=== PATIENT | female | born 1955 | race Caucasian/White ===

== ENCOUNTER 2018-04-07 05:19 | Inpatient (IN) | payer MEDICARE ==
[2018-04-07] VITALS (11 sets, daily range): BP systolic 115–148; BP diastolic 60–91; PULSE 63–84; TEMP 97.7–99
[~2018-04-07] VITALS: Ht 165.1 cm; Wt 85.0 kg
[~2018-04-07 05:19] MED LIST: APRESOLINE 25MG25 MG PO; ASPIRIN E.C. 8181 MG PO; COREG 25MG25 MG/TAB PO; COREG 3.123.125 MG/T; CYMBALTA 30MG30 MG PO; CYMBALTA 60MG60 MG PO; GLUCOPHAGE1000 MG PO; ISORDIL 10MG10 MG PO; LASIX 20MG TABL20 MG PO; LEVEMIR FLEX100 U/ML SQ; LEVOXYL0.137 MG PO; LIPITOR20 MG PO; VASOTEC 5MG5 MG/TAB PO
[2018-04-07 07:44] LABS: BASO # 0.1 (0.0-0.2); BASO % 0.6 % (0.0-2.0); EOS # 0.5 (0.0-0.7); EOS % 4.5 % (0-4.0); GRAN # 6.5 (1.4-6.5); GRAN % 63.8 % (42.2-75.2); LYMPH # 2.6 (1.2-3.4); LYMPH % 25.3 % (20.0-51.0); MEAN CELL VOLUME 88 fl (80.0-100.0); MEAN CORPUSCULAR HGB CONC 31 g/dl (33.0-37.0); MEAN PLATELET VOLUME 11.1 fl (7.4-10.4); MONO # 0.6 (0.1-0.6); MONO % 5.5 % (1.7-9.3); PLATELET COUNT 244 K/mm3 (130-400); RED BLOOD COUNT 3.52 M/mm3 (4.10-5.30); REDCELL DISTRIBUTION WIDTH-CV 12.8 % (11.5-14.5)
[2018-04-07 07:45] LABS: PROTHROMBIN TIME 11.9 SECONDS (9.7-12.8)
[2018-04-07 07:48] LABS: PARTIAL THROMBOPLASTIN TIME 33.7 SECONDS (26.0-37.0)
[2018-04-07 07:49] LABS: ALBUMIN 3.8 gm/dL (3.5-5.0); BILIRUBIN,TOTAL 0.3 mg/dL (0.0-1.0); CALCIUM 8.8 mg/dL (8.4-10.2); POTASSIUM 4.6 mmol/L (3.4-5.0); TOTAL PROTEIN 7.1 gm/dL (6.4-8.2)
[2018-04-07 07:50] LABS: HEMATOCRIT 30.8 % (37.0-47.0); HEMOGLOBIN 9.6 g/dl (12.5-16.0); MEAN CORPUSCULAR HEMOGLOBIN 27 pg (27.0-31.0)
[2018-04-07 07:51] LABS: CREATININE, serum 4.16 mg/dL (0.52-1.25)
--- NOTE | 2018-04-07 08:50 | NUR ---
Pt down to microbiology lab technician for dialysis cath.
--- NOTE | 2018-04-07 09:16 | NUR ---
ALL MEDS GIVEN VIA VERBAL WITH READBACK. SEE MERGE FOR ADMIN TIMES.
--- NOTE | 2018-04-07 10:25 | NUR ---
Pt returned from dialysis catheter placement in labor utilization superintendent. Pt dialysis cath drsg CDI. Pt alert and oriented but very drowsy. Pt has family at bedside. Will update Dr. Sparks pt back from labor utilization superintendent. Pt has post op vitals in place and call light in reach.
[2018-04-07] MEDS ORDERED: PHOSLO667 MG PO (10:53)
[2018-04-07] MEDS ORDERED: CALCITRIOL PO (11:01)
[2018-04-07] MEDS ORDERED: LEVEMIR FLEX100 U/ML SQ (11:06)
[2018-04-07] MEDS ORDERED: IRON TABLETS325 MG PO (11:07)
--- NOTE | 2018-04-07 12:28 | NUR ---
First visit from the title i teacher. No needs right now.
--- NOTE | 2018-04-07 13:58 | NUR ---
SW attempted to meet with patient but patient was not in her room.
--- NOTE | 2018-04-07 18:39 | NUR ---
Pt stable this shift. Pt Right IJ dialysis catheter placed this am and dressing CDI. Pt rates pain 2/10 d/t headache. Pt given snack per request and BS 288. Dr. Sparks updated on BS and wants to monitor and change orders in AM if needed. Pt has call light in reach and brought in her own CPAP to use tonight. Pt denies needs at this time.
--- NOTE | 2018-04-07 19:37 | NUR ---
CALLED DR. TALAMANTES AND RECEIVED ORDERS FOR CPAP FOR SLEEP.
--- NOTE | 2018-04-07 21:24 | NUR ---
PT IN BED WITH HOB ELEVATED TO 45 DEGREE ANGLE, WAS ASLEEP AND SNORING. AWAKENED VERY EASILY. PT HAS SLIGHT PAIN IN RIGHT UPPER CHEST AREA RATED AT A 2/10 THAT IS SHARP AND CONSTANT. PT AMBULATED X1 ASSIST TO BATHROOM AND THEN BACK TO BED. PT HAS NO FURTHER NEEDS AND CALL LIGHT WITHIN REACH.
[2018-04-08 02:25] LABS: HEPATITIS B CORE AB,TOTAL Negative (()); HEPATITIS B SURFACE ANTIGEN Negative (Negative); HEPATITIS C VIRUS ANTIBODY Negative (Negative)
--- NOTE | 2018-04-08 02:25 | NUR ---
PT IN BED WITH HOB ELEVATED TO 30 DEGREE ANGLE, CPAP ON, RESP EVEN AND UNLABORED, WITH NO S/S OF PAIN OR DISCOMFORT NOTED.
[2018-04-08 03:26] LABS: HEPATITIS B SURFACE ANTIBODY <2.0 (())
[2018-04-08 04:16] VITALS: BP 146/59; PULSE 73; TEMP 98.1
--- NOTE | 2018-04-08 07:12 | NUR ---
UNEVENTFUL NIGHT FOR PT. PT SLEPT WITH CPAP ON DURING THE NIGHT AND SLEPT WELL. PT IS AWARE THAT SHE IS GOING TO DIALYSIS THIS AM. PT HAS IN ROOM WITH HER. NO C/O PAIN OR DISCOMFORT, NO NEEDS AND CALL LIGHT WITHIN REACH.
[2018-04-08 07:57] VITALS: BP 139/69; PULSE 69; TEMP 98.2
--- NOTE | 2018-04-08 08:09 | NUR ---
Pt stable and alert and oriented. Pt has spouse at bedside. Pt VS WNL. Pt am assessment completed. Pt taken down for dialysis this am. Pt denies needs at this time. Pt will eat in dialysis.
[2018-04-08 08:32] LABS: BASO % 0.5 % (0.0-2.0); EOS # 0.4 (0.0-0.7); EOS % 4.9 % (0-4.0); GRAN # 5.4 (1.4-6.5); GRAN % 61.6 % (42.2-75.2); LYMPH # 2.3 (1.2-3.4); LYMPH % 25.8 % (20.0-51.0); MEAN CELL VOLUME 88 fl (80.0-100.0); MEAN CORPUSCULAR HGB CONC 31 g/dl (33.0-37.0); MEAN PLATELET VOLUME 10.5 fl (7.4-10.4); MONO # 0.6 (0.1-0.6); MONO % 6.9 % (1.7-9.3); PLATELET COUNT 209 K/mm3 (130-400); RED BLOOD COUNT 3.37 M/mm3 (4.10-5.30); REDCELL DISTRIBUTION WIDTH-CV 12.9 % (11.5-14.5)
[2018-04-08 08:45] LABS: ALBUMIN 3.4 gm/dL (3.5-5.0); CALCIUM 8.6 mg/dL (8.4-10.2); CREATININE, serum 3.23 mg/dL (0.52-1.25); PHOSPHOROUS 5.3 mg/dL (2.5-4.5); POTASSIUM 4.5 mmol/L (3.4-5.0)
[2018-04-08 08:52] LABS: HEMATOCRIT 29.7 % (37.0-47.0); HEMOGLOBIN 9.2 g/dl (12.5-16.0); MEAN CORPUSCULAR HEMOGLOBIN 27 pg (27.0-31.0)
[2018-04-08 11:41] VITALS: BP 137/56; PULSE 76; TEMP 97.7
--- NOTE | 2018-04-08 12:53 | NUR ---
Plan to return home with mother Eric Davey . Patient reports that she will stay with her mother a few days until she can return home. Patient is interested in Home health care and has used [facility] in the past. Patient reports that she resides in [place] alone but her mother is a few houses down. Patient repoerts that she is using a CPAP machince nightly and a shower chair and extending head. Patient repeorts that she would like to Yonatan Thao , ex-BF to be on the emergency contact for her. Patient has DPOA ppw and SW made a copy and placed copy in chart. Patient reports the needs to have Transportation setup for [place] 3x a week and must sees her PCP every four weeks and Dr. Partida or Elizabeth Every week. PCP reported as Dr. Eduin Bishop, Dr. Chambers, and Dr. Partida. Action: Gave family resources, faxed home health care [facility] form for intake. Patient educated on resources and transportation services through insurance. Please fax script to insurance and to home health care for coverage of transportation. Called and confirmed medical neccassity for transportation.
--- NOTE | 2018-04-08 14:29 | NUR ---
Pt stable and alert. Pt has family in and out at bedside all of today. Pt wants to sponge bathe this evening. Pt given education on bathing with dialysis catheter and importance of not getting the catheter wet. Pt also edu on bathing during dialysis per pt. Pt has nutrition info from small business banking officer. Pt has PT and OT ordered. Pt denies needs at this time.
[2018-04-08 16:30] VITALS: BP 138/74; PULSE 81; TEMP 98
[2018-04-08 19:29] VITALS: BP 117/55; PULSE 80; TEMP 97.9
--- NOTE | 2018-04-08 20:00 | NUR ---
PT IN BED WITH HOB AT 30 DEGREE ANGLE. HAS BEEN ASSISTING HER TO THE BATHROOM AND ADVISES THAT PT HAS BEEN AMBULATING IN ROOM INDEPENDENTLY AND GAIT STEADY. PT IS A LITTLE WEAK, BUT SHE ADVISES THAT SHE FEELS FINE. PT HAS CPAP THAT SHE SLEEPS WITH AT NIGHT AND PUTS IT ON BY HERSELF. PT RESTING IN BED WITH AT SIDE. DENIES PAIN OR DISCOMFORT AT THIS TIME. CALL LIGHT WITHIN REACH.
[2018-04-09 02:37] VITALS: BP 148/59; PULSE 71; TEMP 98.3
--- NOTE | 2018-04-09 05:49 | NUR ---
UNEVENTFUL NIGHT, PT HAS BEEN SLEEPING/RESTING WITH CPAP ON. NO S/S OF PAIN OR DISCOMFORT NOTED, AT BEDSIDE AND CALL LIGHT WITHIN REACH.
--- NOTE | 2018-04-09 06:03 | NUR ---
PT'S BS WAS 92 AND PT WAS WORRIED BECAUSE HER BS HAS NEVER BEEN THAT LOW. FOOD TAKEN INTO PT'S ROOM.
[2018-04-09 07:37] VITALS: BP 137/57; PULSE 70; TEMP 98.6
[2018-04-09 11:44] VITALS: BP 143/58; PULSE 80; TEMP 98
[2018-04-09 14:37] LABS: BASO # 0.1 (0.0-0.2); BASO % 0.5 % (0.0-2.0); EOS # 0.4 (0.0-0.7); EOS % 4.3 % (0-4.0); GRAN # 6.4 (1.4-6.5); GRAN % 64.4 % (42.2-75.2); HEMATOCRIT 29.9 % (37.0-47.0); HEMOGLOBIN 9.4 g/dl (12.5-16.0); LYMPH # 2.4 (1.2-3.4); LYMPH % 24.1 % (20.0-51.0); MEAN CELL VOLUME 89 fl (80.0-100.0); MEAN CORPUSCULAR HEMOGLOBIN 28 pg (27.0-31.0); MEAN CORPUSCULAR HGB CONC 31 g/dl (33.0-37.0); MEAN PLATELET VOLUME 11.2 fl (7.4-10.4); MONO # 0.6 (0.1-0.6); MONO % 5.9 % (1.7-9.3); PLATELET COUNT 201 K/mm3 (130-400); RED BLOOD COUNT 3.38 M/mm3 (4.10-5.30)
[2018-04-09 14:44] LABS: ALBUMIN 3.5 gm/dL (3.5-5.0); CALCIUM 9.1 mg/dL (8.4-10.2); CREATININE, serum 3.12 mg/dL (0.52-1.25); PHOSPHOROUS 3.7 mg/dL (2.5-4.5); POTASSIUM 4.5 mmol/L (3.4-5.0)
[2018-04-09 17:10] VITALS: BP 154/67; PULSE 84; TEMP 99.1
--- NOTE | 2018-04-09 18:18 | NUR ---
Pt stable this shift. Pt alert and oriented and family at bedside. Pt denies pain at this time. Pt dialysis cath CDI. Reviewed bathing instructions with pt regarding dialysis cath and under no circumstances can the cath get wet so sponge bathing is best. Pt also edu on vein mapping CD that will be given to her and importance to keep because she will need it for follow up appt. Pt understands. Pt has family at bedside and denies needs at this time.
[2018-04-09 19:12] VITALS: BP 94/53; PULSE 78; TEMP 98.6
--- NOTE | 2018-04-09 20:15 | NUR ---
Pt resting in bed watching TV, shift assessments complete, left Pt call light in reach, bed in lowest position.
[2018-04-09 23:29] VITALS: BP 126/46; PULSE 78; TEMP 97.9
[2018-04-10 04:09] VITALS: BP 137/55; PULSE 75; TEMP 98.2
--- NOTE | 2018-04-10 05:13 | NUR ---
Pt slept well during the night, no C/O pain, VS have remained stable.
[2018-04-10 07:44] VITALS: BP 143/68; PULSE 73; TEMP 98.4
--- NOTE | 2018-04-10 08:00 | NUR ---
Pt AAOx4 with mother at bedside, pt wishing to shower - educated on infection risk of TDC with exposure to water, pt agrees. 0840 Pt off unit to dialysis
[2018-04-10 09:29] LABS: BASO % 0.4 % (0.0-2.0); EOS # 0.5 (0.0-0.7); EOS % 4.7 % (0-4.0); GRAN # 7.1 (1.4-6.5); GRAN % 68.8 % (42.2-75.2); LYMPH % 19.7 % (20.0-51.0); MEAN CELL VOLUME 89 fl (80.0-100.0); MEAN CORPUSCULAR HGB CONC 31 g/dl (33.0-37.0); MEAN PLATELET VOLUME 10.9 fl (7.4-10.4); MONO # 0.6 (0.1-0.6); MONO % 5.9 % (1.7-9.3); PLATELET COUNT 187 K/mm3 (130-400); REDCELL DISTRIBUTION WIDTH-CV 12.9 % (11.5-14.5)
[2018-04-10 09:30] LABS: HEMATOCRIT 29.3 % (37.0-47.0); HEMOGLOBIN 9.1 g/dl (12.5-16.0); MEAN CORPUSCULAR HEMOGLOBIN 28 pg (27.0-31.0)
[2018-04-10 09:43] LABS: ALBUMIN 3.3 gm/dL (3.5-5.0); CALCIUM 8.8 mg/dL (8.4-10.2); CREATININE, serum 3.34 mg/dL (0.52-1.25); PHOSPHOROUS 3.9 mg/dL (2.5-4.5); POTASSIUM 4.5 mmol/L (3.4-5.0)
--- NOTE | 2018-04-10 14:20 | NUR ---
JAMIN met with patient and mother about discharge plans. Patient reported to weekend SW that she was interested in [facility] when she is discharged. Patient also reported Dr should have written an RX for transportation to dialysis three times a week. JAMIN will fax that prescription to [facility] and patient's insurance.
--- NOTE | 2018-04-10 15:39 | NUR ---
JAMIN spoke with Pedro from [facility] about referral that was faxed this weekend. Pedro reports they did not recieve a referral on patient. JAMIN faxed referral.
[2018-04-10 16:12] VITALS: BP 149/65; PULSE 92; TEMP 99
[2018-04-10 19:55] VITALS: BP 130/50; PULSE 81; TEMP 98.5
--- NOTE | 2018-04-10 21:03 | NUR ---
Pt resting in bed sleeping, no C/O pain, shift assessments complete, left Pt call light in reach, bed in lowest position.
[2018-04-11 00:24] VITALS: BP 134/71; PULSE 78; TEMP 98
[2018-04-11 03:17] VITALS: BP 141/62; PULSE 81; TEMP 98.1
--- NOTE | 2018-04-11 04:54 | NUR ---
Pt slept well during the night, no C/O pain, VS have remained stable.
--- NOTE | 2018-04-11 07:23 | NUR ---
Resting in bed at this time. No pain or needs reported. The call light is in place.
[2018-04-11 07:38] VITALS: BP 139/65; PULSE 79; TEMP 98.3
[2018-04-11 11:37] LABS: BASO % 0.4 % (0.0-2.0); EOS # 0.5 (0.0-0.7); GRAN # 7.5 (1.4-6.5); GRAN % 66.6 % (42.2-75.2); HEMATOCRIT 33.1 % (37.0-47.0); HEMOGLOBIN 10.2 g/dl (12.5-16.0); LYMPH # 2.6 (1.2-3.4); LYMPH % 22.6 % (20.0-51.0); MEAN CELL VOLUME 90 fl (80.0-100.0); MEAN CORPUSCULAR HEMOGLOBIN 28 pg (27.0-31.0); MEAN CORPUSCULAR HGB CONC 31 g/dl (33.0-37.0); MEAN PLATELET VOLUME 10.9 fl (7.4-10.4); MONO # 0.7 (0.1-0.6); PLATELET COUNT 201 K/mm3 (130-400); RED BLOOD COUNT 3.67 M/mm3 (4.10-5.30)
[2018-04-11 11:50] LABS: ALBUMIN 3.6 gm/dL (3.5-5.0); CALCIUM 9.1 mg/dL (8.4-10.2); CREATININE, serum 3.09 mg/dL (0.52-1.25); POTASSIUM 4.6 mmol/L (3.4-5.0)
[2018-04-11] MEDS ORDERED: COREG 6.256.25 MG/TA PO (12:01)
--- NOTE | 2018-04-11 14:22 | NUR ---
Discharge educations completed with the patient and her mother at this time. All questions answered and the patient was escorted out for ex- to drive home.
--- NOTE | 2018-04-13 12:47 | NUR ---
Patient was discharged on 04/11/18 with [facility].
== END 2018-04-11 14:22 | disposition home health service (06) | DRG 674 ==
LOC: INPTSU 05:19 → MEDICAL 05:19 → EDSTATUS 06:00 → COL.CAR 06:00 → MEDICAL 07:18 → COL.CAR 10:30 → MEDICAL 04-11 14:22
PROVIDERS: ADMIT Internal Medicine Nephrology
PROC: 0JHD0XZ Insertion of Tunneled Vascular Access Device into Right Upper Arm Subcutaneous Tissue and Fascia, Open Approach (ICD-10-PCS; principal; 2018-04-07)
PROC: 02H633Z Insertion of Infusion Device into Right Atrium, Percutaneous Approach (ICD-10-PCS; 2018-04-07)
PROC: B2141ZZ Fluoroscopy of Right Heart using Low Osmolar Contrast (ICD-10-PCS; 2018-04-07)
PROC: 5A1D70Z Performance of Urinary Filtration, Intermittent, Less than 6 Hours Per Day (ICD-10-PCS; 2018-04-07)
PROC: 5A1D70Z Performance of Urinary Filtration, Intermittent, Less than 6 Hours Per Day (ICD-10-PCS; 2018-04-08)
PROC: 5A1D70Z Performance of Urinary Filtration, Intermittent, Less than 6 Hours Per Day (ICD-10-PCS; 2018-04-10)
DX: N17.9 Acute kidney failure, unspecified (principal); I12.0 Hypertensive chronic kidney disease with stage 5 chronic kidney disease or end stage renal disease; I42.0 Dilated cardiomyopathy; N18.6 End stage renal disease; E11.22 Type 2 diabetes mellitus with diabetic chronic kidney disease; E11.21 Type 2 diabetes mellitus with diabetic nephropathy; E11.40 Type 2 diabetes mellitus with diabetic neuropathy, unspecified; D63.1 Anemia in chronic kidney disease; F32.9 Major depressive disorder, single episode, unspecified; N25.81 Secondary hyperparathyroidism of renal origin; E83.39 Other disorders of phosphorus metabolism; E78.5 Hyperlipidemia, unspecified; E55.9 Vitamin D deficiency, unspecified; I25.10 Atherosclerotic heart disease of native coronary artery without angina pectoris
CPT/HCPCS: C1769; G0365; J0690; J0882; J1644; J1815; J2250; J2916; J3010

== ENCOUNTER 2018-08-27 20:00 | Inpatient (IN) | payer MEDICARE ==
[~2018-08-27] VITALS: Ht 165.1 cm; Wt 78.6 kg
[~2018-08-27 20:00] MED LIST changes: +CALCITRIOL PO; +COREG 6.256.25 MG/TA PO; +IRON TABLETS325 MG PO; +PHOSLO667 MG PO
[2018-08-27 21:50] VITALS: BP 156/73; PULSE 73; TEMP 98.1
[2018-08-27] MEDS ORDERED: PROZAC 20MG20 MG PO (22:10)
[2018-08-28 04:31] VITALS: BP 138/57; PULSE 74; TEMP 98.1
[2018-08-28 07:27] VITALS: BP 146/69; PULSE 69; TEMP 98
[2018-08-28 10:21] LABS: BASO # 0.1 (0.0-0.2); BASO % 0.6 % (0.0-2.0); EOS # 0.3 (0.0-0.7); EOS % 3.1 % (0-4.0); GRAN # 6.5 (1.4-6.5); GRAN % 76.1 % (42.2-75.2); HEMOGLOBIN 10.2 g/dl (12.5-16.0); LYMPH # 1.4 (1.2-3.4); LYMPH % 15.8 % (20.0-51.0); MEAN CELL VOLUME 91 fl (80.0-100.0); MEAN CORPUSCULAR HEMOGLOBIN 28 pg (27.0-31.0); MEAN CORPUSCULAR HGB CONC 31 g/dl (33.0-37.0); MEAN PLATELET VOLUME 10.5 fl (7.4-10.4); MONO # 0.4 (0.1-0.6); MONO % 4.2 % (1.7-9.3); PLATELET COUNT 187 K/mm3 (130-400); RED BLOOD COUNT 3.59 M/mm3 (4.10-5.30); REDCELL DISTRIBUTION WIDTH-CV 13.8 % (11.5-14.5)
[2018-08-28 10:22] LABS: HEMATOCRIT 32.8 % (37.0-47.0)
[2018-08-28 10:30] LABS: ALBUMIN 3.5 gm/dL (3.5-5.0); CALCIUM 8.9 mg/dL (8.4-10.2); CREATININE, serum 2.76 (0.52-1.25); PHOSPHOROUS 2.6 mg/dL (2.5-4.5)
[2018-08-28 13:20] VITALS: BP 125/50; PULSE 67; TEMP 97.9
[2018-08-28 16:05] VITALS: BP 149/67; PULSE 70; TEMP 98.7
[2018-08-28 19:47] VITALS: BP 139/49; PULSE 74; TEMP 98.7
[2018-08-29 00:48] VITALS: BP 136/72; PULSE 73; TEMP 97.8
[2018-08-29 05:00] VITALS: BP 156/63; PULSE 72; TEMP 98
[2018-08-29 07:10] LABS: BASO # 0.1 (0.0-0.2); BASO % 0.6 % (0.0-2.0); EOS # 0.5 (0.0-0.7); EOS % 4.8 % (0-4.0); GRAN # 7.4 (1.4-6.5); GRAN % 72.1 % (42.2-75.2); LYMPH # 1.6 (1.2-3.4); LYMPH % 15.2 % (20.0-51.0); MEAN CELL VOLUME 92 fl (80.0-100.0); MEAN CORPUSCULAR HEMOGLOBIN 29 pg (27.0-31.0); MEAN CORPUSCULAR HGB CONC 31 g/dl (33.0-37.0); MEAN PLATELET VOLUME 10.5 fl (7.4-10.4); MONO # 0.7 (0.1-0.6); PLATELET COUNT 241 K/mm3 (130-400); RED BLOOD COUNT 3.84 M/mm3 (4.10-5.30); REDCELL DISTRIBUTION WIDTH-CV 14.1 % (11.5-14.5)
[2018-08-29 07:14] LABS: HEMATOCRIT 35.5 % (37.0-47.0)
[2018-08-29 07:23] LABS: ALBUMIN 3.6 gm/dL (3.5-5.0); CALCIUM 8.9 mg/dL (8.4-10.2); CREATININE, serum 3.39 (0.52-1.25); PHOSPHOROUS 3.7 mg/dL (2.5-4.5); POTASSIUM 4.7 mmol/L (3.4-5.0)
[2018-08-29 08:57] VITALS: BP 130/56; PULSE 65; TEMP 97.8
[2018-08-29 12:06] VITALS: BP 129/82; PULSE 61; TEMP 97.8
[2018-08-29 15:09] VITALS: BP 133/53; PULSE 67; TEMP 97.6
[2018-08-29 19:37] VITALS: BP 127/65; PULSE 70; TEMP 98
[2018-08-30] VITALS (7 sets, daily range): BP systolic 117–161; BP diastolic 42–83; PULSE 69–77; TEMP 97.7–99.5
[2018-08-30 09:51] LABS: BASO % 0.5 % (0.0-2.0); EOS # 0.4 (0.0-0.7); EOS % 4.3 % (0-4.0); GRAN # 5.7 (1.4-6.5); GRAN % 70.3 % (42.2-75.2); HEMOGLOBIN 10.9 g/dl (12.5-16.0); LYMPH # 1.6 (1.2-3.4); MEAN CELL VOLUME 91 fl (80.0-100.0); MEAN CORPUSCULAR HEMOGLOBIN 29 pg (27.0-31.0); MEAN CORPUSCULAR HGB CONC 31 g/dl (33.0-37.0); MONO # 0.4 (0.1-0.6); MONO % 4.4 % (1.7-9.3); PLATELET COUNT 241 K/mm3 (130-400); RED BLOOD COUNT 3.81 M/mm3 (4.10-5.30); REDCELL DISTRIBUTION WIDTH-CV 13.9 % (11.5-14.5)
[2018-08-30 09:52] LABS: HEMATOCRIT 34.7 % (37.0-47.0)
[2018-08-30 10:04] LABS: ALBUMIN 3.3 gm/dL (3.5-5.0); CALCIUM 8.5 mg/dL (8.4-10.2); CREATININE, serum 3.35 (0.52-1.25); PHOSPHOROUS 3.9 mg/dL (2.5-4.5); POTASSIUM 4.8 mmol/L (3.4-5.0)
[2018-08-31 03:07] VITALS: BP 134/63; PULSE 68; TEMP 97.7
[2018-08-31 08:38] VITALS: BP 114/40; PULSE 91; TEMP 97.7
[2018-08-31 11:09] LABS: BASO % 0.5 % (0.0-2.0); EOS # 0.2 (0.0-0.7); EOS % 2.7 % (0-4.0); GRAN # 5.8 (1.4-6.5); HEMATOCRIT 38.4 % (37.0-47.0); HEMOGLOBIN 11.9 g/dl (12.5-16.0); LYMPH # 1.8 (1.2-3.4); LYMPH % 22.5 % (20.0-51.0); MEAN CELL VOLUME 92 fl (80.0-100.0); MEAN CORPUSCULAR HEMOGLOBIN 29 pg (27.0-31.0); MEAN CORPUSCULAR HGB CONC 31 g/dl (33.0-37.0); MONO # 0.1 (0.1-0.6); MONO % 1.7 % (1.7-9.3); PLATELET COUNT 214 K/mm3 (130-400); RED BLOOD COUNT 4.17 M/mm3 (4.10-5.30); REDCELL DISTRIBUTION WIDTH-CV 14.2 % (11.5-14.5)
[2018-08-31 11:15] LABS: ALBUMIN 3.5 gm/dL (3.5-5.0); CALCIUM 8.9 mg/dL (8.4-10.2); CREATINE KINASE 34 U/L (30-135); CREATININE, serum 2.55 (0.52-1.25); PHOSPHOROUS 2.9 mg/dL (2.5-4.5); POTASSIUM 4.4 mmol/L (3.4-5.0)
[2018-08-31 11:39] LABS: TROPONIN-I < 0.012 ng/mL (0.000-0.035)
[2018-08-31 17:53] VITALS: BP 143/66; PULSE 71; TEMP 98.2
[2018-08-31 19:14] VITALS: BP 141/65; PULSE 89; TEMP 98.4
[2018-08-31 23:23] VITALS: BP 158/74; PULSE 81; TEMP 98.9
[2018-09-01 03:44] VITALS: BP 164/73; PULSE 87; TEMP 98
[2018-09-01 09:08] VITALS: BP 128/55; PULSE 51; TEMP 97.9
[2018-09-01 11:48] VITALS: BP 117/58; PULSE 68; TEMP 97.6
[2018-09-01] MEDS ORDERED: COREG 3.123.125 MG/T PO (11:56)
[2018-09-01] MEDS ORDERED: LASIX 20MG TABL20 MG PO (11:57)
[2018-09-01 13:26] LABS: BASO # 0.1 (0.0-0.2); BASO % 0.6 % (0.0-2.0); EOS # 0.6 (0.0-0.7); EOS % 4.8 % (0-4.0); GRAN # 7.8 (1.4-6.5); GRAN % 67.2 % (42.2-75.2); HEMOGLOBIN 11.5 g/dl (12.5-16.0); LYMPH # 2.4 (1.2-3.4); LYMPH % 20.6 % (20.0-51.0); MEAN CELL VOLUME 91 fl (80.0-100.0); MEAN CORPUSCULAR HEMOGLOBIN 29 pg (27.0-31.0); MEAN CORPUSCULAR HGB CONC 32 g/dl (33.0-37.0); MEAN PLATELET VOLUME 9.9 fl (7.4-10.4); MONO # 0.7 (0.1-0.6); MONO % 6.4 % (1.7-9.3); PLATELET COUNT 230 K/mm3 (130-400); RED BLOOD COUNT 3.94 M/mm3 (4.10-5.30); REDCELL DISTRIBUTION WIDTH-CV 14.2 % (11.5-14.5)
[2018-09-01 13:27] LABS: HEMATOCRIT 35.9 % (37.0-47.0)
[2018-09-01 13:34] LABS: ALBUMIN 3.5 gm/dL (3.5-5.0); CREATININE, serum 3.28 (0.52-1.25); PHOSPHOROUS 4.4 mg/dL (2.5-4.5); POTASSIUM 4.9 mmol/L (3.4-5.0)
[2018-09-02 15:05] LABS: CK total - for Isoenzymes 36 U/L (26 - 192)
== END 2018-09-01 14:40 | disposition home or self-care (01) | DRG 291 ==
LOC: MEDICAL 20:00
PROVIDERS: ADMIT Internal Medicine Nephrology
PROC: 5A1D70Z Performance of Urinary Filtration, Intermittent, Less than 6 Hours Per Day (ICD-10-PCS; principal; 2018-08-28)
PROC: 02PYX3Z Removal of Infusion Device from Great Vessel, External Approach (ICD-10-PCS; 2018-08-28)
DX: I13.2 Hypertensive heart and chronic kidney disease with heart failure and with stage 5 chronic kidney disease, or end stage renal disease (principal); N18.6 End stage renal disease; I50.9 Heart failure, unspecified; F32.9 Major depressive disorder, single episode, unspecified; E11.22 Type 2 diabetes mellitus with diabetic chronic kidney disease; E66.9 Obesity, unspecified; E55.9 Vitamin D deficiency, unspecified; I27.20 Pulmonary hypertension, unspecified; G47.33 Obstructive sleep apnea (adult) (pediatric); E83.39 Other disorders of phosphorus metabolism; I42.9 Cardiomyopathy, unspecified; E78.5 Hyperlipidemia, unspecified; D63.1 Anemia in chronic kidney disease; I34.0 Nonrheumatic mitral (valve) insufficiency; I45.10 Unspecified right bundle-branch block; Z68.29 Body mass index [BMI] 29.0-29.9, adult; Z99.2 Dependence on renal dialysis; Z79.4 Long term (current) use of insulin; Z79.82 Long term (current) use of aspirin
CPT/HCPCS: J1644; J1815; J7030

== ENCOUNTER 2019-04-11 05:53 | Outpatient (CLI) | payer MEDICARE ==
--- NOTE | 2019-04-10 09:30 | NUR ---
MAILBOX FULL AND UNABLE TO LEAVE MESSAGE AT THIS TIME IN REGARDS TO PROCEDURE INSTRUCTIONS AND HEALTH HISTORY.
[2019-04-11] VITALS (10 sets, daily range): BP systolic 146–166; BP diastolic 76–94; PULSE 53–86; TEMP 97.7
[~2019-04-11] VITALS: Ht 165.1 cm; Wt 97.7 kg
[~2019-04-11 05:53] MED LIST changes: +COREG 3.123.125 MG/T PO; +PROZAC40 MG PO
--- NOTE | 2019-04-11 07:35 | NUR ---
Pt to procedure at this time.
--- NOTE | 2019-04-11 07:46 | NUR ---
SEE MERGE FOR MEDICATION ADMINISTRATION TIMES AND INTRA ND POST SEDATION ASSESSMENTS.
[2019-04-11] MEDS ORDERED: COREG 6.256.25 MG/TA PO (07:51)
[2019-04-11] MEDS ORDERED: LIPITOR20 MG PO (07:53)
[2019-04-11] MEDS ORDERED: SYNTHROID0.137 MG PO (07:54)
[2019-04-11] MEDS ORDERED: ASPIRIN 81M81 MG/TA2 PO (07:55)
[2019-04-11] MEDS ORDERED: LASIX 20MG TABL20 MG PO (07:56)
--- NOTE | 2019-04-11 10:48 | NUR ---
Discharge instructions given to pt.pt verbalizes understanding.INT removed,catheter tip intact.Pt escorted out via wheelchair by this nurse.
== END 2019-04-11 11:22 | disposition home or self-care (01) ==
LOC: COL.CAR 05:53
DX: T82.898A Other specified complication of vascular prosthetic devices, implants and grafts, initial encounter (principal); E11.22 Type 2 diabetes mellitus with diabetic chronic kidney disease; N18.6 End stage renal disease; Z99.2 Dependence on renal dialysis; E03.9 Hypothyroidism, unspecified; Z79.4 Long term (current) use of insulin; Z79.82 Long term (current) use of aspirin
CPT/HCPCS: J1644; J2250; J3010; Q9967

== ENCOUNTER → 2019-06-12 | Outpatient (CLI) | payer MEDICARE ==
[~2019-06-12] MED LIST changes: +ASPIRIN 81M81 MG/TA2 PO; +SYNTHROID0.137 MG PO
== END ==
LOC: ZCOL.LAB 15:15
DX: Z11.59 Encounter for screening for other viral diseases (principal); N18.6 End stage renal disease

== ENCOUNTER 2021-03-31 11:38 | Inpatient (IN) | payer MEDICARE ==
[~2021-03-31] VITALS: Ht 165.1 cm; Wt 77.6 kg
[~2021-03-31 11:38] MED LIST changes: +HUMULIN N PE100 U/ML SQ; +SYNTHROID0.1 MG/TAB PO; -SYNTHROID0.137 MG PO
[2021-03-31 14:10] VITALS: BP 126/61; PULSE 94; TEMP 98.1
--- NOTE | 2021-03-31 14:10 | NUR ---
PATIENT ADMITED INTO ROOM 337 VIA PRIVATE VEHICLE WITH DAUGHTER & SON-IN-LAW. A&O WITH OCCATIONAL FORGETFULNESS. PATIENT DISPLAYS SOME SHORT TERM MEMORY BUT OTHERWISE KNOWS PERSON, PLACE & TIME. VERY PLEASANT. VSS. NO C/O PAIN, N/V, OR SOA. RECEIVED REPORT FROM RN AT . PATIENT HAS EXTENSIVE MEDICAL HX. EXPRESS NURSING COMING UP TO DO RXM AND GO OVER LONG MED LIST. ADMISSION ASSESSMENT COMPLETE. ORIENTED TO ROOM. CALL LIGHT IN REACH. BED ALARM ON.
[2021-03-31] MEDS ORDERED: CORDARONE200 MG/TAB PO (15:57)
[2021-03-31] MEDS ORDERED: ELIQUIS 5MG PO (15:58)
[2021-03-31] MEDS ORDERED: ZORTRESS1 MG PO (15:59)
[2021-03-31] MEDS ORDERED: NOVOLOG FLEX100 U/ML SQ ×2 (16:04→16:06)
[2021-03-31] MEDS ORDERED: MELATONIN5 M1 SL (16:09)
[2021-03-31] MEDS ORDERED: TOPROL XL 25MG25 MG PO (16:10)
[2021-03-31] MEDS ORDERED: ENVARSUS XR1 MG PO (16:11)
[2021-03-31] MEDS ORDERED: IMODIUM 2MG CAPS2 MG PO (16:13)
[2021-03-31] MEDS ORDERED: ANECREAM TP (16:13)
[2021-03-31] MEDS ORDERED: MIRALAX PA17 GM/Dose PO (16:14)
[2021-03-31] MEDS ORDERED: CRESTOR 10MG10 MG PO (16:14)
[2021-03-31] MEDS ORDERED: DESYREL 50MG50 MG PO (16:14)
[2021-03-31] MEDS ORDERED: COREG 6.256.25 MG/TA PO (16:15)
[2021-03-31] MEDS ORDERED: PREDNISONE10 MG PO (16:17)
[2021-03-31] MEDS ORDERED: EFFEXOR 3737.5 MG/TA PO (16:19)
[2021-03-31] MEDS ORDERED: TYLENOL 325MG325 MG PO (16:20)
[2021-03-31] MEDS ORDERED: B-121000 MCG PO (16:20)
[2021-03-31] MEDS ORDERED: VITAMIND3 5000 PO (16:20)
[2021-03-31] MEDS ORDERED: DIPHENHYDRAMINE TP (16:21)
[2021-03-31] MEDS ORDERED: LOMOTIL 0.025 M1 TAB PO (16:22)
[2021-03-31] MEDS ORDERED: PROTONIX 40MG T40 MG PO (16:23)
[2021-03-31 18:00] VITALS: BP 115/48; PULSE 65; TEMP 98.7
--- NOTE | 2021-03-31 19:22 | NUR ---
RECEIVED CHANGE OF SHIFT REPORT FROM DAY SHIFT RN
--- NOTE | 2021-03-31 21:35 | NUR ---
PATIENT REPORTED TO THIS NURSE THAT SHE "JUST FOUND OUT THAT MY DAUGHTER, WHO CAME AND SAW ME TODAY, JUST FOUND OUT TONIGHT SHE TESTED POSITIVE FOR COVID". PATIENT REPORTS BOTH SHE AND THE DAUGHTER WORE THEIR MASK, PATIENT HAS HAD COVID VACC X3 SHOTS, DENIES N/V/TEMP/CHILLS/SOA/WORSENING COUGH/DIARRHEA/SORE THROAT/BODY ACHES/FATIGUE AT THIS TIME. REPORTED THAT HER DAUGHTER ONLY STAYED FOR VISIT FOR 15 MIN "AT THE MOST". INFORMED CHARGE NURSE AND LAWN CARE TECHNICIAN OF PATIENT'S SITUATION. REMINDED PATIENT TO KEEP WEARING HER MASK WHEN NOT ALONE.
[2021-04-01 04:15] VITALS: BP 126/64; PULSE 58; TEMP 97.8
--- NOTE | 2021-04-01 06:47 | NUR ---
Report received from MAGGY Beverly. Patient is sleeping in bed. Call light and bedside table are within reach. Will continue to monitor patient throughout shift.
--- NOTE | 2021-04-01 07:43 | NUR ---
CHANGE OF SHIFT REPORT GIVEN TO DAY SHIFT RNDILAN. BED ALARM ON, CALL LIGHT WITHIN REACH. PATIENT DENIES ANY NEEDS.
[2021-04-01 13:01] LABS: BASO % 0.2 % (0.0-2.0); EOS # 0.1 K/mm3 (0.0-0.7); EOS % 1.4 % (0.0-4.0); GRAN # 6.5 K/mm3 (1.4-6.5); GRAN % 80.7 % (42.2-75.2); HEMOGLOBIN 10.5 g/dl (12.5-16.0); LYMPH # 0.6 K/mm3 (1.2-3.4); LYMPH % 7.8 % (20.0-51.0); MEAN CELL VOLUME 85 fl (80.0-100.0); MEAN CORPUSCULAR HEMOGLOBIN 26 pg (27-31); MEAN CORPUSCULAR HGB CONC 31 g/dl (33.0-37.0); MEAN PLATELET VOLUME 10.4 fl (7.4-10.4); MONO # 0.8 K/mm3 (0.1-0.6); MONO % 9.4 % (1.7-9.3); PLATELET COUNT 189 K/mm3 (130-400); RED BLOOD COUNT 3.97 M/mm3 (4.10-5.30); REDCELL DISTRIBUTION WIDTH-CV 19.2 % (11.5-14.5)
[2021-04-01 13:02] LABS: HEMATOCRIT 33.9 % (37.0-47.0)
[2021-04-01 13:19] LABS: ALBUMIN 2.8 gm/dL (3.4-4.8); CALCIUM 8.9 mg/dL (8.4-10.2); CREATININE, serum 5.06 mg/dL (0.57-1.11); PHOSPHOROUS 4.1 mg/dL (2.3-4.7); POTASSIUM 4.5 mmol/L (3.5-4.5)
--- NOTE | 2021-04-01 15:33 | NUR ---
PATIENT TOLERATED HD TX WITH 2L OF FLUID REMOVED. NEXT PLANNED HD TX ON Tuesday04/03/21 AFTER THERAPIES, EMLA CREAM APPLIED TO LFA AVF FOR 30MINS & LUNCH.
--- NOTE | 2021-04-01 19:30 | NUR ---
RECEIVED CHANGE OF SHIFT REPORT FROM DAY SHIFT NURSE. PATIENT UP IN CHAIR DURING REPORT, REPORTED CONCERN REGARD SKIN TEAR SCAB TO L LATERAL ELBOW BLEEDING. OBSERVED NO ACTIVE BLEEDING, SITE COVERED WITH TELFA AND WRAP WITH SOFT ROLL FOR PROTECTION. EXIT ALARM ON WHILE UP IN CHAIR. CALL LIGHT WITHIN REACH.
[2021-04-01 23:44] LABS: HEPATITIS B SURFACE ANTIBODY 12.9 (()); HEPATITIS B SURFACE ANTIGEN Negative (Negative); HEPATITIS C VIRUS ANTIBODY Negative (Negative)
[2021-04-02 05:13] VITALS: BP 112/46; PULSE 69; TEMP 98.2
--- NOTE | 2021-04-02 07:17 | NUR ---
CHANGE OF SHIFT REPORT GIVEN TO DAY SHIFT RNDILAN. BED ALARM ON. PATIENT SLEEPING DURING REPORT, DENIES ANY NEEDS. CALL LIGHT WITHIN REACH.
--- NOTE | 2021-04-02 07:22 | NUR ---
Report recieved from MAGGY Beverly. Patient is bed sleeping. Call light and bedside within reach. Will continue to throught shift.
--- NOTE | 2021-04-02 13:35 | NUR ---
JAMIN met with the patient to complete intake, as the patient is new to [facility]. The patient lives alone in [place]. She states that her mother and daughter, Nafisa (ph#[phone]), and other family members also live in [place]. She reports independence with ADLs before hospitalization and has a cane, walker, and wheelchair. The patient states that she had home health in the past and believes it may have been from [facility]. The patient's PCP is Dr. Samir Bishop and she [facility] her [facility]. The patient's DPOA-HC is in EMR and it designates Duane and her mother, Brittny (ph#[phone]). The patient states that Duane has , but she confirms that Brittny is still her DPOA-HC. The patient reports that she is pooped after therapy today. JAMIN then presented and reviewed the IPR Team Conference Note to her. The team plans to re-eval the patient next Tuesday. The patient is in agreement to the plan and had no concerns for SW.
[2021-04-02 17:00] VITALS: BP 109/61; PULSE 65; TEMP 98.2
--- NOTE | 2021-04-02 21:00 | NUR ---
PT SITTING IN RECLINER. ASKED MY NAME 3 TIMES. FORGETFUL. ASISTED TO BRM WITH WALKER. VOIDED 50CC CLEAR YELLOW URINE BUT WAS INCONTINENT IN BRIEF. NEEDS CUING AT TIMES FOR CHRONOLOGICAL ORDER OF TASKS. TRYING TO TAKE PANTS OFF BEFORE SLIPPERS ETC. TO BED. PT ABLE TO LIFT LEGS INTO BED. HAD LEFT LE WEAKNESS. BED ALARM SET. CALL LIGHT IN REACH.
[2021-04-03 04:40] VITALS: BP 136/75; PULSE 65; TEMP 98.3
--- NOTE | 2021-04-03 06:10 | NUR ---
PT HAD UNEVENTFUL NIGHT. ACCUCHECK THIS AM WAS 150.
--- NOTE | 2021-04-03 13:34 | NUR ---
Admission QIM scores were reviewed by the team. Code of 3 chosen for toilet hygiene was determined by team discussion to be the most usual performance for this patient during the assessment period. Code of 3 chosen for toileting transfers was determined by team discussion to be the most usual performance for this patient during the assessment period. Code of 3 chosen for shower/bathe self was determined by team discussion to be the most usual performance before interventions for this patient during the assessment period. Code of 4 chosen for upper body dressing was determined by team discussion to be the most usual performance before interventions for this patient during the assessment period. Code of 3 chosen for lower body dressing was determined by team discussion to be the most usual performance for this patient during the assessment period. Code of 4 chosen for putting on/taking off footwear was determined by team discussion to be the most usual performance for this patient during the assessment period. Code of 4 chosen for rolling left to right was determined by team discussion to be the most usual performance before interventions for this patient during the assessment period. Code of 4 chosen for lying to sitting on side of bed was determined by team discussion to be the most usual performance for this patient during the assessment period. Code of 3 for sit to stand was determined by team discussion to be the most usual performance for this patient during the assessment period. Code of 3 for chair/bed to chair transfers was determined by team discussion to be the most usual performance for this patient during the assessment period. Code of 88 chosen for walk 10 feet was determined by team discussion to be the most usual performance for this patient during the assessment period. Code of 88 chosen for walk 50 feet w/ 2 turns was determined by team discussion to be the most usual performance for this patient during the assessment period. Code of 88 chosen for walk 150 feet was determined by team discussion to be the most usual performance for this patient during the assessment period.--Christina Lee,
[2021-04-03 13:43] LABS: BASO % 0.4 % (0.0-2.0); EOS # 0.1 K/mm3 (0.0-0.7); GRAN # 6.3 K/mm3 (1.4-6.5); GRAN % 81.4 % (42.2-75.2); HEMOGLOBIN 10.4 g/dl (12.5-16.0); LYMPH # 0.6 K/mm3 (1.2-3.4); LYMPH % 7.4 % (20.0-51.0); MEAN CELL VOLUME 87 fl (80.0-100.0); MEAN CORPUSCULAR HEMOGLOBIN 27 pg (27-31); MEAN CORPUSCULAR HGB CONC 30 g/dl (33.0-37.0); MEAN PLATELET VOLUME 10.5 fl (7.4-10.4); MONO # 0.7 K/mm3 (0.1-0.6); MONO % 9.3 % (1.7-9.3); PLATELET COUNT 161 K/mm3 (130-400); RED BLOOD COUNT 3.93 M/mm3 (4.10-5.30)
[2021-04-03 13:45] LABS: HEMATOCRIT 34.2 % (37.0-47.0)
[2021-04-03 13:57] LABS: ALBUMIN 2.8 gm/dL (3.4-4.8); CALCIUM 8.8 mg/dL (8.4-10.2); CREATININE, serum 4.37 mg/dL (0.57-1.11); PHOSPHOROUS 3.7 mg/dL (2.3-4.7); POTASSIUM 4.9 mmol/L (3.5-4.5)
[2021-04-03 16:26] VITALS: BP 141/63; PULSE 64; TEMP 98.7
--- NOTE | 2021-04-03 17:01 | NUR ---
PATIEN TOLERATED HD TX WITH 2.3L OF FLUID REMOVED. NEXT PLANNED HD TX ON TUESDAY AFTER THERAPIES, EMLA CREAM TO AVF FOR 30 MINS & LUNCH.
[2021-04-03 18:02] VITALS: BP 125/48; PULSE 61; TEMP 97.5
[2021-04-04 04:46] VITALS: BP 131/53; PULSE 64; TEMP 98.8
--- NOTE | 2021-04-04 07:00 | NUR ---
PT SITTING UP IN THE CHAIR. NO NEEDS AT THIS TIME. WILL CONTINUE TO MONTIOR.
[2021-04-04 17:12] VITALS: BP 123/55; PULSE 64; TEMP 97.3
[2021-04-05 06:04] VITALS: BP 114/60; PULSE 67; TEMP 97.9
--- NOTE | 2021-04-05 07:00 | NUR ---
PT UP AND GETTING DRESSED. NO NEEDS AT THIS TIME. WILL CONTINUE TO MONITOR.
[2021-04-05 17:38] VITALS: BP 122/52; PULSE 63; TEMP 98.8
[2021-04-06 05:11] VITALS: BP 139/67; PULSE 71; TEMP 97.7
--- NOTE | 2021-04-06 08:00 | NUR ---
PATIENT IS A&O. VSS. DENIES PAIN OR N/V. SITTING UP IN BED WITH BREAKFAST TRAY. RENAL DIET. 1,500CC FR. AM BS WAS 182, INSULIN GIVEN. AM MEDS GIVEN. HEAD TO TOE ASSESSMENT COMPLETE. PATIENT WILL HAVE DIALYSIS LATER TODAY. LEFT FORARM FISTULA WITH [employer]. NO OTHER NEEDS AT THIS TIME. CALL LIGHT IN REACH. BED ALARM ON.
--- NOTE | 2021-04-06 12:58 | NUR ---
TOPICAL LIDO APPLIED TO LEFT ARM FISTULA BEFORE DIALYSIS PER PATIENT REQUEST.
--- NOTE | 2021-04-06 13:00 | NUR ---
THERAPY REPORTED PATIENT HAD BM WHILE IN THERAPY AND NOTED SOME BLOOD. NOT OBSERVED BY STAFF. DISCUSSED WITH IPR MYCOLOGY TEACHER AND NOTIFIED NEPHROLOGY. WILL MONITOR
[2021-04-06 15:21] LABS: BASO % 0.2 % (0.0-2.0); EOS % 0.5 % (0.0-4.0); GRAN % 83.5 % (42.2-75.2); HEMOGLOBIN 10.3 g/dl (12.5-16.0); LYMPH # 0.5 K/mm3 (1.2-3.4); LYMPH % 5.9 % (20.0-51.0); MEAN CELL VOLUME 87 fl (80.0-100.0); MEAN CORPUSCULAR HEMOGLOBIN 26 pg (27-31); MEAN CORPUSCULAR HGB CONC 30 g/dl (33.0-37.0); MEAN PLATELET VOLUME 10.8 fl (7.4-10.4); MONO # 0.8 K/mm3 (0.1-0.6); MONO % 9.1 % (1.7-9.3); PLATELET COUNT 147 K/mm3 (130-400); RED BLOOD COUNT 3.95 M/mm3 (4.10-5.30); REDCELL DISTRIBUTION WIDTH-CV 18.9 % (11.5-14.5)
[2021-04-06 15:23] LABS: HEMATOCRIT 34.2 % (37.0-47.0)
[2021-04-06 15:32] LABS: ALBUMIN 2.7 gm/dL (3.4-4.8); CALCIUM 8.9 mg/dL (8.4-10.2); CREATININE, serum 4.44 mg/dL (0.57-1.11); PHOSPHOROUS 2.8 mg/dL (2.3-4.7); POTASSIUM 4.3 mmol/L (3.5-4.5)
--- NOTE | 2021-04-06 17:25 | NUR ---
PATIENT TOLERATED HER HD TX WITH 3L OF FLUID REMOVED. NEXT PLANNED TX ON Tuesday04/08/21 AFTER THERAPIES, EMLA CREAM APPLIED 30 MINS BEFORE DIALYSIS & LUNCH.
[2021-04-06 17:46] VITALS: BP 155/76; PULSE 65; TEMP 98.4
--- NOTE | 2021-04-06 18:55 | NUR ---
RECEIVED CHANGE OF SHIFT REPORT FROM DAY SHIFT RN. PATIENT UP IN CHAIR WITH EXIT ALARM ON. CALL LIGHT WITHIN REACH. DENIES ANY NEEDS AT TIME OF REPORT.
[2021-04-07 05:56] VITALS: BP 111/40; PULSE 68; TEMP 98.7
--- NOTE | 2021-04-07 07:25 | NUR ---
CHANGE OF SHIFT REPORT GIVEN TO DAY SHIFT RNDILAN AND MELANIA.
--- NOTE | 2021-04-07 07:42 | NUR ---
Report received from MAGGY Beverly. Patient is in bed resting. Call light and bedside table are within reach. Will continue to monitor patient throught shift.
--- NOTE | 2021-04-07 14:00 | NUR ---
reclamation worker spoke with the patient's daughter Nafisa. Notified her that the therapy team would like to have a family meeting on Saturday 04/08 at 1015. Nafisa reports that she would be able to attend meeting in person and is planning on being present.
[2021-04-07 16:32] VITALS: BP 133/64; PULSE 71; TEMP 97.8
--- NOTE | 2021-04-07 18:47 | NUR ---
Patient was educated on diabetes and hypoglycemia vs hyperglycemia. Patient was also educated on the importance of not skipping meals. Patient acknowledged she understood. Patient was also aware of the fact that if she gets food and does not like it, to let the nurse know so we can reorder for her.
--- NOTE | 2021-04-07 19:28 | NUR ---
RECEIVED CHANGE OF SHIFT REPORT FROM DAY SHIFT RNs.
[2021-04-08 05:09] VITALS: BP 124/63; PULSE 79; TEMP 97.6
--- NOTE | 2021-04-08 06:54 | NUR ---
Report received from MAGGY Beverly. Call light and bedside table are within reach. Will continue to monitor patient throughout shift,
--- NOTE | 2021-04-08 07:19 | NUR ---
CHANGE OF SHIFT REPORT GIVEN TO DAY SHIFT RNs, VENUS.
[2021-04-08 13:38] LABS: BASO % 0.2 % (0.0-2.0); EOS % 0.2 % (0.0-4.0); GRAN # 7.4 K/mm3 (1.4-6.5); GRAN % 87.9 % (42.2-75.2); HEMATOCRIT 31.7 % (37.0-47.0); HEMOGLOBIN 9.9 g/dl (12.5-16.0); LYMPH # 0.4 K/mm3 (1.2-3.4); LYMPH % 5.3 % (20.0-51.0); MEAN CELL VOLUME 84 fl (80.0-100.0); MEAN CORPUSCULAR HEMOGLOBIN 26 pg (27-31); MEAN CORPUSCULAR HGB CONC 31 g/dl (33.0-37.0); MEAN PLATELET VOLUME 10.6 fl (7.4-10.4); MONO # 0.5 K/mm3 (0.1-0.6); MONO % 5.7 % (1.7-9.3); PLATELET COUNT 133 K/mm3 (130-400); RED BLOOD COUNT 3.76 M/mm3 (4.10-5.30); REDCELL DISTRIBUTION WIDTH-CV 18.6 % (11.5-14.5)
[2021-04-08 13:50] LABS: ALBUMIN 2.9 gm/dL (3.4-4.8); CREATININE, serum 2.26 mg/dL (0.57-1.11); PHOSPHOROUS 2.1 mg/dL (2.3-4.7); POTASSIUM 3.7 mmol/L (3.5-4.5)
--- NOTE | 2021-04-08 14:15 | NUR ---
Social Work student faxed SNF referrals to [facility], and [facility].
--- NOTE | 2021-04-08 14:33 | NUR ---
Patient's chair time is TuThSa at 1500.
[2021-04-08] MEDS ORDERED: REGLAN 5MG T5 MG/TAB PO (15:10)
[2021-04-08] MEDS ORDERED: LASIX 40MG TABL40 MG PO (15:15)
[2021-04-08 16:00] VITALS: BP 138/72; PULSE 74; TEMP 98.8
--- NOTE | 2021-04-08 16:22 | NUR ---
PATIENT TOLERATED HD TX WITH 3.3L OF FLUID REMOVED. NEXT PLANNED HD TX ON Tuesday04/10/21 @ 0830. PLEASE APPLY EMLA CREAM 30 MINS TO 1 HOUR BEFORE HD TX.
--- NOTE | 2021-04-08 17:03 | NUR ---
Patient is not currently wearing her bilat. ROSA hose. She declines wearing them for this evening. Patient will put the ROSA hose on in the morning.
[2021-04-08 18:00] VITALS: BP 111/51; PULSE 75; TEMP 98
[2021-04-09 04:11] VITALS: BP 118/56; PULSE 78; TEMP 98.8
--- NOTE | 2021-04-09 04:14 | NUR ---
PCT KATHY REPORTS THAT PT'S OXYGEN SATS ARE LOW @ 87%. PT IS DROWSY, EARLIER REPORTED THAT SHE DOES NORMALLY WEAR A CPAP @ NIGHT BUT DOES NOT HAVE IT HERE WITH HER. PT PLACED ON 1L O2 VIA NC. OXYGEN SATS INCREASE TO 90%. PT DENIES SOB OR PAIN @ THIS TIME. RESPIRATIONS UNLABORED. CALL LIGHT WITHIN REACH.
--- NOTE | 2021-04-09 05:47 | NUR ---
PT'S O2 SATS ARE 96% ON 1L O2 VIA NC.
--- NOTE | 2021-04-09 06:52 | NUR ---
SHIFT REPORT RECEIVED FROM PRIMARY SCHOOL TEACHER LIBRARIAN RN. PATIENT IS RESTING COMFORTABLY IN BED.
--- NOTE | 2021-04-09 11:50 | NUR ---
Spoke with the patient's daughter Nafisa and provided list of private duty caregivers. Nafisa does not feel as if the patient is able to take care of herself at home 13/09. States she has two other siblings but that her sister suffers from mental health problems and that her brother has disabilities himself and that both are unable to provide care for the patient. Nafisa states that their spare bedroom is located in her basement and that caring for her mother at her house is not an option. Encouraged Nafisa that now is the time to start thinking about technician terminal and repeater solutions and that as a family they are going to run into this barrier after a SNF stay. Nafisa expresses her understanding and agreement. Emilee with [facility] contacts me stating that they are able to accept this patient. Confirmed the patient's dialysis time with Emilee and notifed her that it will most likely be an afternoon dc time. Nafisa contacted and notifed of the above. Nafisa verbalizes her appreciation and is greatful for the help. Let Nafisa know that [facility] will provide transportation and that we will let her know of a dc time. Nafisa verbalizes that she would like to be here during the transition.
--- NOTE | 2021-04-09 13:10 | NUR ---
Patient will continue dialysis on Tue, , and Tuesday at 0830. Patient has her chair time and will be transported to [facility] on her dialysis days. She will be transported/discharged to [facility] after dialysis on Tuesday04/10/21.
--- NOTE | 2021-04-09 16:47 | NUR ---
Called Hospitalist to clarify Insulin orders. Patient has three orders for insulin currently (one is currently on hold). Awaiting callback for clarification
[2021-04-09 17:23] VITALS: BP 134/58; PULSE 79; TEMP 99.7
--- NOTE | 2021-04-09 17:55 | NUR ---
New orders re: Insulin regimen received. See eMAR for changes.
--- NOTE | 2021-04-09 20:30 | NUR ---
PT MOD I IN ROOM. UP AMB SAFELY WITH WALKER. VOIDED 50CC AND HAD BM. DENIES PAIN. NO NEEDS AT THIS TIME.
[2021-04-10 05:01] VITALS: BP 129/65; PULSE 71; TEMP 97.7
--- NOTE | 2021-04-10 08:48 | NUR ---
PATIENT TAKEN TO DIALYSIS IN WHEELCHAIR.
[2021-04-10 09:04] LABS: HEMOGLOBIN 10.1 g/dl (12.5-16.0); MEAN CELL VOLUME 87 fl (80.0-100.0); MEAN CORPUSCULAR HEMOGLOBIN 26 pg (27-31); MEAN CORPUSCULAR HGB CONC 30 g/dl (33.0-37.0); MEAN PLATELET VOLUME 10.8 fl (7.4-10.4); PLATELET COUNT 131 K/mm3 (130-400); RED BLOOD COUNT 3.88 M/mm3 (4.10-5.30); REDCELL DISTRIBUTION WIDTH-CV 18.4 % (11.5-14.5)
[2021-04-10 09:09] LABS: HEMATOCRIT 33.8 % (37.0-47.0)
[2021-04-10 09:17] LABS: ALBUMIN 2.6 gm/dL (3.4-4.8); CALCIUM 8.9 mg/dL (8.4-10.2); CREATININE, serum 3.42 mg/dL (0.57-1.11); PHOSPHOROUS 4.3 mg/dL (2.3-4.7)
[2021-04-10 10:10] LABS: ANISOCYTOSIS 2+; EOSINOPHIL 1 % (0-4); HYPOCHROMIA 3+; LYMPHOCYTE 8 % (20.0-51.0); NEUTROPHILS 84 % (42.0-75.2); PLATELET ESTIMATE NORMAL (NORMAL)
[2021-04-10 11:41] VITALS: BP 138/69; PULSE 61; TEMP 98.4
--- NOTE | 2021-04-10 11:42 | NUR ---
PATIENT TOLERATED HD TX WITH 3L OF FLUID REMOVED. NEXT HD TX @ [facility] IN [place] TOMORROW, Tuesday04/11/21 @ 1500.
--- NOTE | 2021-04-10 13:16 | NUR ---
PATIENT RETURNED FROM DIALYSIS AROUND 12, RN BROUGHT PATIENT BACK TO UNIT IN WHEELCHAIR. PER CUSTOM CLOTHIER, PATIENT HAD 3L REMOVED VIA DIALYSIS TREATMENT. PATIENT'S REMAINING MEDICATIONS WERE ADMINISTERED POST RETURN TO ROOM AFTER DISCUSSION WITH HEMODIALYSIS NURSE THIS MORNING ABOUT WHICH MEDICATIONS MAY BE FILTERED OUT OF PATIENT'S SYSTEM THROUGH HER TREATMENT. KITCHEN WAS CALLED AND PATIENT'S MEAL TRAY WAS DELIVERED EARLIER (12:30 INSTEAD OF 1300). PATIENT IS DUE TO BE DISCHARGED THIS AFTERNOON. RAPID COVID SWAB WAS OBTAINED AND SENT TO LAB FOR RESULTS. PATIENT'S BLOOD GLUCOSE WAS OBTAINED PRIOR TO MEAL TRAY AND DID NOT REQUIRE INSULIN COVERAGE. AWAITING FINAL DISCHARGE INSTRUCTIONS.
--- NOTE | 2021-04-10 14:41 | NUR ---
Manager Technical Support contacted Emilee at [facility] and arranged transport for 1415. SW notified patient's daughter, Nafisa of transport time. SW faxed discharge orders and negative covid results.
--- NOTE | 2021-04-10 14:45 | NUR ---
VERBAL REPORT CALLED TO MAGGY ESTRADA AT [facility]. REVIEWED PATIENT'S DISCHARGE INSTRUCTIONS WITH PATIENT AND DAUGHTER. PATIENT VERBALIZED UNDERSTANDING. NO FURTHER QUESTIONS AT THIS TIME. PATIENT TAKEN OUTSIDE VIA WHEELCHAIR TO [facility] TRANSPORT VAN WITH BETZAIDA SERRATO.
--- NOTE | 2021-04-15 12:34 | NUR ---
*(Late Entry)* Patient meeting held in patient's room. Patient's mother and daughter are present for meeting. MD, PT,OT, and ST also in attendance. Therapy team discussed how the patient has been doing and the progress she has made. Discussed biggest barrier for the patient is her own self confidence in completing tasks. Patient's family expresses concerns of the patient being able to care for herself at home. What was once the plan to stay at a cousin's house with her mother is no longer an option for them and the family feels the patient's needs are greater than what services can provide. Patient's family would like SNF referrals sent to local facilities for extended therapeutic care. Informed the family that if she is not accepted to a SNF referral, out only option is home with HH. Patient is in agreement that she is unable to care for herself at home. Patient reports that she is still feeling weaker in her left leg compared to her right and is afraid of falling at home. All other questions and concerns addressed.
== END 2021-04-10 14:47 | DRG 91 ==
PROVIDERS: Internal Medicine Nephrology; ADMIT Physical Medicine & Rehabilitation Sports Medicine
PROC: 5A1D70Z Performance of Urinary Filtration, Intermittent, Less than 6 Hours Per Day (ICD-10-PCS; principal; 2021-04-01)
DX: G72.81 Critical illness myopathy (principal); N18.6 End stage renal disease; G93.41 Metabolic encephalopathy; I50.23 Acute on chronic systolic (congestive) heart failure; Z94.0 Kidney transplant status; I13.2 Hypertensive heart and chronic kidney disease with heart failure and with stage 5 chronic kidney disease, or end stage renal disease; I48.92 Unspecified atrial flutter; N17.9 Acute kidney failure, unspecified; R53.81 Other malaise; Z99.2 Dependence on renal dialysis; I48.91 Unspecified atrial fibrillation; E11.40 Type 2 diabetes mellitus with diabetic neuropathy, unspecified; E11.22 Type 2 diabetes mellitus with diabetic chronic kidney disease; I34.0 Nonrheumatic mitral (valve) insufficiency; E03.9 Hypothyroidism, unspecified; E78.5 Hyperlipidemia, unspecified; G47.33 Obstructive sleep apnea (adult) (pediatric); K21.9 Gastro-esophageal reflux disease without esophagitis; F32.A Depression, unspecified; F41.9 Anxiety disorder, unspecified; K59.00 Constipation, unspecified; M25.511 Pain in right shoulder; R19.7 Diarrhea, unspecified; R26.89 Other abnormalities of gait and mobility; Z73.6 Limitation of activities due to disability; Z79.4 Long term (current) use of insulin; Z79.899 Other long term (current) drug therapy; Z79.01 Long term (current) use of anticoagulants; Z79.52 Long term (current) use of systemic steroids; R11.2 Nausea with vomiting, unspecified; N39.41 Urge incontinence; R06.02 Shortness of breath
CPT/HCPCS: 99222; 99231-AI; 99232-AI; J1644; J1815; J7030; J7512; Q5105

== ENCOUNTER 2022-04-29 11:08 | Inpatient (IN) | payer MEDICARE ==
[~2022-04-29] VITALS: Ht 165.1 cm; Wt 63.0 kg
[~2022-04-29 11:08] MED LIST changes: +ANECREAM TP; +B-121000 MCG PO; +CORDARONE200 MG/TAB PO; +CRESTOR 10MG10 MG PO; +DESYREL 50MG50 MG PO; +DIPHENHYDRAMINE TP; +EFFEXOR 3737.5 MG/TA PO; +ELIQUIS 5MG PO; +ENVARSUS XR1 MG PO; +IMODIUM 2MG CAPS2 MG PO; +LASIX 40MG TABL40 MG PO; +LOMOTIL 0.025 M1 TAB PO; +MELATONIN5 M1 SL; +MIRALAX PA17 GM/Dose PO; +NOVOLOG FLEX100 U/ML SQ; +PREDNISONE10 MG PO; +PROTONIX 40MG T40 MG PO; +REGLAN 5MG T5 MG/TAB PO; +TOPROL XL 25MG25 MG PO; +TYLENOL 325MG325 MG PO; +VITAMIND3 5000 PO; +ZORTRESS1 MG PO
[2022-04-29 12:19] LABS: BASO % 0.3 % (0.0-2.0); EOS # 0.1 K/mm3 (0.0-0.7); EOS % 1.1 % (0.0-4.0); GRAN # 4.7 K/mm3 (1.4-6.5); GRAN % 73.4 % (42.2-75.2); HEMOGLOBIN 12.2 g/dl (12.5-16.0); LYMPH # 1.1 K/mm3 (1.2-3.4); LYMPH % 17.4 % (20.0-51.0); MEAN CELL VOLUME 93 fl (80.0-100.0); MEAN CORPUSCULAR HEMOGLOBIN 31 pg (27-31); MEAN CORPUSCULAR HGB CONC 33 g/dl (33.0-37.0); MEAN PLATELET VOLUME 11.5 fl (7.4-10.4); MONO # 0.5 K/mm3 (0.1-0.6); MONO % 7.5 % (1.7-9.3); PLATELET COUNT 137 K/mm3 (130-400); RED BLOOD COUNT 3.97 M/mm3 (4.10-5.30); REDCELL DISTRIBUTION WIDTH-CV 14.6 % (11.5-14.5)
[2022-04-29 12:20] LABS: HEMATOCRIT 36.8 % (37.0-47.0)
[2022-04-29 12:24] LABS: ALBUMIN 3.2 gm/dL (3.4-4.8); BILIRUBIN,TOTAL 1.2 mg/dL (0.2-1.2); CALCIUM 9.5 mg/dL (8.4-10.2); CREATININE, serum 3.25 mg/dL (0.57-1.11); POTASSIUM 4.6 mmol/L (3.5-4.5); TOTAL PROTEIN 6.7 gm/dL (6.2-8.1)
[2022-04-29 12:30] LABS: TROPONIN-I 0.074 ng/mL (0.00-0.033)
[2022-04-29 14:52] VITALS: BP 149/80; PULSE 72; TEMP 98.1
[2022-04-29 15:35] VITALS: BP 148/75; PULSE 72; TEMP 97.6
[2022-04-29] MEDS ORDERED: SODIUM BICARBO650 MG PO (15:36)
[2022-04-29 17:12] LABS: MUCOUS Present (NOT PRESENT); PH 5.5 (5-8); SQUAMOUS EPITHELIAL 0-2 /hpf (0-10); URINE APPEARANCE Cloudy (CLEAR/HAZY); URINE BACTERIA Moderate /hpf (NONE SEEN); URINE COLOR Yellow (YELLOW); URINE PROTEIN(semi-quant) 3+ (NEGATIVE); URINE RBC 0-2 /hpf (0-2)
[2022-04-29 17:12] LABS: CALCIUM 9.4 mg/dL (8.4-10.2); CREATININE, serum 3.36 mg/dL (0.57-1.11); POTASSIUM 4.8 mmol/L (3.5-4.5)
[2022-04-29 17:13] LABS: URINE BLOOD 2+ (NEGATIVE); URINE GLUCOSE Negative (NEGATIVE); URINE KETONE TRACE (NEGATIVE); URINE NITRATE Negative (NEGATIVE); URINE UROBILINOGEN 0.2 (NEGATIVE)
[2022-04-29 17:19] LABS: COLLECTION METHOD CLEAN CATCH
--- NOTE | 2022-04-29 18:28 | NUR ---
PATIENT IS A NEW ADMIT TO THE MEDICAL FLOOR. CAME IN DUE TO MISSING MULTIPLE DIALYSIS SESSIONS. EX- IS AT THE BEDSIDE. PATIENT STATES THEY ARE CLOSE AND HAVE CHILDREN TOGETHER. REMAIN VERY CLOSE FRIENDS AND SUPPORT ONE ANOTHER. NURSING ASKED PATIENT WHY THEY DID NOT GO TO DIALYSIS MULTIPLE TIMES. PATIENT STATED THAT SHE HAS BEEN BUSY TAKING CARE OF HER GRAND CHILDREN AND HELPING HER KIDS OUT. NURSING DISCUSSED THE IMPORTANCE OF GOING TO DIALYSIS. PATIENT VSS. EATING HER DINNER IN DIALYSIS NOW. NO COVERAGE FOR DINNER/INSULSIN.
[2022-04-29 21:23] VITALS: BP 143/62; PULSE 73; TEMP 98.4
[2022-04-29 23:40] VITALS: BP 145/70; PULSE 76; TEMP 98.3
[2022-04-30 04:47] VITALS: BP 135/64; PULSE 66; TEMP 97.6
[2022-04-30 06:45] LABS: BASO % 0.5 % (0.0-2.0); EOS % 0.2 % (0.0-4.0); GRAN % 72.4 % (42.2-75.2); HEMOGLOBIN 11.6 g/dl (12.5-16.0); LYMPH # 1.1 K/mm3 (1.2-3.4); LYMPH % 19.3 % (20.0-51.0); MEAN CELL VOLUME 94 fl (80.0-100.0); MEAN CORPUSCULAR HEMOGLOBIN 30 pg (27-31); MEAN CORPUSCULAR HGB CONC 32 g/dl (33.0-37.0); MEAN PLATELET VOLUME 12.3 fl (7.4-10.4); MONO # 0.4 K/mm3 (0.1-0.6); MONO % 7.2 % (1.7-9.3); PLATELET COUNT 86 K/mm3 (130-400); RED BLOOD COUNT 3.86 M/mm3 (4.10-5.30); REDCELL DISTRIBUTION WIDTH-CV 14.6 % (11.5-14.5)
[2022-04-30 06:49] LABS: HEMATOCRIT 36.1 % (37.0-47.0)
[2022-04-30 06:51] LABS: ALBUMIN 2.9 gm/dL (3.4-4.8); CREATININE, serum 2.7 mg/dL (0.57-1.11); PHOSPHOROUS 4.6 mg/dL (2.3-4.7); POTASSIUM 4.7 mmol/L (3.5-4.5)
[2022-04-30 07:15] VITALS: BP 143/65; PULSE 60; TEMP 97.4
--- NOTE | 2022-04-30 11:06 | NUR ---
Agree with student nurses assessment of the patient. Patient A&Ox4. VSS. 2L NC O2. IV CDI. Denies pain and discomfort. Call light within reach
--- NOTE | 2022-04-30 14:19 | NUR ---
SW met with the patient to discuss discharge plan. The patient lives alone in [place]. She reports independence with ADLs and has a cane, walker, and wheelchair. The patient's PCP is Dr. Radha Collins and [facility] The patient's DPOA-HC is in EMR and it designates her mother, Brittny Alvarado (ph#[phone]), and her late father. The patient plans to return home upon discharge. She is currently on 2 liters of oxygen. The patient clarified that she does not have home oxygen. *Discharge plan: home. May need oxygen upon discharge*
[2022-04-30 15:56] VITALS: BP 142/64; PULSE 67; TEMP 98.4
[2022-04-30 19:30] VITALS: BP 119/84; PULSE 74; TEMP 98.6
[2022-04-30 20:21] VITALS: BP 108/42; PULSE 70; TEMP 100.5
[2022-04-30 23:27] VITALS: BP 107/43; PULSE 65; TEMP 98.1
[2022-05-01 03:13] VITALS: BP 109/56; PULSE 62; TEMP 98.4
--- NOTE | 2022-05-01 07:00 | NUR ---
PT RESTING IN BED. PT IS AXOX4. PT DENIES PAIN AT THIS TIME. PT INSTRUCTED TO CALL WITH ALL NEEDS AND CALL LIGHT GIVEN.
[2022-05-01 07:09] LABS: ALBUMIN 2.8 gm/dL (3.4-4.8); CALCIUM 8.7 mg/dL (8.4-10.2); CREATININE, serum 3.28 mg/dL (0.57-1.11); PHOSPHOROUS 3.3 mg/dL (2.3-4.7); POTASSIUM 4.4 mmol/L (3.5-4.5)
[2022-05-01 07:12] LABS: BASO % 0.1 % (0.0-2.0); EOS % 0.2 % (0.0-4.0); GRAN # 9.3 K/mm3 (1.4-6.5); GRAN % 81.6 % (42.2-75.2); HEMATOCRIT 39.2 % (37.0-47.0); HEMOGLOBIN 12.7 g/dl (12.5-16.0); LYMPH # 1.3 K/mm3 (1.2-3.4); LYMPH % 11.3 % (20.0-51.0); MEAN CELL VOLUME 93 fl (80.0-100.0); MEAN CORPUSCULAR HEMOGLOBIN 30 pg (27-31); MEAN CORPUSCULAR HGB CONC 32 g/dl (33.0-37.0); MEAN PLATELET VOLUME 12.2 fl (7.4-10.4); MONO # 0.7 K/mm3 (0.1-0.6); MONO % 6.4 % (1.7-9.3); PLATELET COUNT 102 K/mm3 (130-400); RED BLOOD COUNT 4.21 M/mm3 (4.10-5.30); REDCELL DISTRIBUTION WIDTH-CV 14.6 % (11.5-14.5)
[2022-05-01 08:33] VITALS: BP 99/59; PULSE 61; TEMP 98.4
[2022-05-01 11:45] VITALS: BP 92/57; PULSE 61; TEMP 98.7
[2022-05-01 15:33] VITALS: BP 101/60; PULSE 58; TEMP 98.7
[2022-05-01 19:35] VITALS: BP 105/57; PULSE 56; TEMP 98.5
[2022-05-02 00:01] VITALS: BP 148/79; PULSE 57; TEMP 97.9
[2022-05-02 03:57] VITALS: BP 136/62; PULSE 60; TEMP 97.4
--- NOTE | 2022-05-02 05:10 | NUR ---
Patient care, medication administration and nursing documentation occurred during a Daylight Savings Time Change. ASSESSMENT COMPLETE FOR MAINFRAME APPLICATIONS DEVELOPER. PT HAD A PRETTY UNEVENTFUL NIGHT. PT HAD SOME CONFUSION WITH TIME. PT DENIED PAIN, N,V,D OR DIZZINESS. FALL PRECAUTIONS IN PLACE. BED ALARM ON. CALL LIGHT WITHIN REACH.
[2022-05-02 07:02] LABS: ALBUMIN 2.7 gm/dL (3.4-4.8); CALCIUM 9.2 mg/dL (8.4-10.2); CREATININE, serum 4.26 mg/dL (0.57-1.11); PHOSPHOROUS 4.2 mg/dL (2.3-4.7); POTASSIUM 4.6 mmol/L (3.5-4.5)
[2022-05-02 07:36] VITALS: BP 147/76; PULSE 66; TEMP 98.5
[2022-05-02 10:14] LABS: BASO % 0.1 % (0.0-2.0); EOS % 0.2 % (0.0-4.0); HEMATOCRIT 41.8 % (37.0-47.0); HEMOGLOBIN 13.7 g/dl (12.5-16.0); LYMPH # 1.1 K/mm3 (1.2-3.4); LYMPH % 11.4 % (20.0-51.0); MEAN CELL VOLUME 92 fl (80.0-100.0); MEAN CORPUSCULAR HEMOGLOBIN 30 pg (27-31); MEAN CORPUSCULAR HGB CONC 33 g/dl (33.0-37.0); MEAN PLATELET VOLUME 12.1 fl (7.4-10.4); MONO # 0.4 K/mm3 (0.1-0.6); PLATELET COUNT 159 K/mm3 (130-400); RED BLOOD COUNT 4.56 M/mm3 (4.10-5.30); REDCELL DISTRIBUTION WIDTH-CV 14.3 % (11.5-14.5)
[2022-05-02 11:47] VITALS: BP 125/66; PULSE 58; TEMP 97.7
--- NOTE | 2022-05-02 13:24 | NUR ---
PER CENSUS SHEET AND ALSO PATIENT STATEMENT SHE WAS TO HAVE DIALYSIS AT 1330. CALLED DIALYSIS EXTENSION AND NO ANSWER. CHECKED DIALYSIS ROOM, ROOM DARK AND EMPY, NO DIALYSIS STAFF PRESENT.
--- NOTE | 2022-05-02 13:57 | NUR ---
PAGED DR TALAMANTES
[2022-05-02 15:44] VITALS: BP 119/60; PULSE 64; TEMP 97.6
--- NOTE | 2022-05-02 16:00 | NUR ---
PATIENT AWAKE, RESTING IN BED. PATIENT DENIES ANY NEEDS OR COMPLAINTS AT THIS TIME. CALL LIGHT WITHIN REACH. BED ALARM ON
--- NOTE | 2022-05-02 17:15 | NUR ---
PATIENT TAKEN TO DIALYSIS.
--- NOTE | 2022-05-02 18:06 | NUR ---
PATIENT AWAKE AND ALERT, RESTING IN BED. PATIENT DENIES ANY NEEDS OR COMPLAINTS AT THIS TIME. BED ALARM ON, CALL LIGHT WITH IN REACH.
[2022-05-02 20:36] VITALS: BP 132/71; PULSE 67; TEMP 97.2
[2022-05-03 00:37] VITALS: BP 134/59; PULSE 67; TEMP 98.2
[2022-05-03 03:17] VITALS: BP 142/60; PULSE 63; TEMP 97.8
--- NOTE | 2022-05-03 06:45 | NUR ---
giselle, bedside shift report received from MAGGY Campos
[2022-05-03 06:47] LABS: BASO % 0.1 % (0.0-2.0); EOS % 0.4 % (0.0-4.0); GRAN # 6.5 K/mm3 (1.4-6.5); GRAN % 82.8 % (42.2-75.2); HEMATOCRIT 39.8 % (37.0-47.0); HEMOGLOBIN 12.8 g/dl (12.5-16.0); LYMPH # 0.9 K/mm3 (1.2-3.4); LYMPH % 11.8 % (20.0-51.0); MEAN CELL VOLUME 94 fl (80.0-100.0); MEAN CORPUSCULAR HEMOGLOBIN 30 pg (27-31); MEAN CORPUSCULAR HGB CONC 32 g/dl (33.0-37.0); MEAN PLATELET VOLUME 12.7 fl (7.4-10.4); MONO # 0.4 K/mm3 (0.1-0.6); MONO % 4.5 % (1.7-9.3); PLATELET COUNT 87 K/mm3 (130-400); RED BLOOD COUNT 4.25 M/mm3 (4.10-5.30); REDCELL DISTRIBUTION WIDTH-CV 14.3 % (11.5-14.5)
[2022-05-03 07:29] LABS: ALBUMIN 2.7 gm/dL (3.4-4.8); CALCIUM 9.2 mg/dL (8.4-10.2); CREATININE, serum 3.88 mg/dL (0.57-1.11); POTASSIUM 4.3 mmol/L (3.5-4.5)
--- NOTE | 2022-05-03 07:45 | NUR ---
resting in bed, assisted up to bathroom and then back to bed, full assessment compelted, see interventions for further info, denies needs at this time
[2022-05-03 07:52] VITALS: BP 165/70; PULSE 66; TEMP 97.7
--- NOTE | 2022-05-03 08:30 | NUR ---
sitting up in bed eating breakfast
--- NOTE | 2022-05-03 09:14 | NUR ---
Initial visit; Patient thanked Program Evaluator for looking in on her and offering prayer and God's blessings.
--- NOTE | 2022-05-03 10:21 | NUR ---
resting in bed, requesting some water, will provide
--- NOTE | 2022-05-03 11:10 | NUR ---
occupational therapy in to work with patient
[2022-05-03 11:30] VITALS: BP 144/75; PULSE 68; TEMP 97.6
--- NOTE | 2022-05-03 11:55 | NUR ---
Christina, [facility] Director, notified SW that they received a referral from Dr. Johnson on the patient. Christina states that the patient is too functional and they will have to decline the patient. SW then received a phone call from the patient's daughter. She shares that she works at [facility] in long-term care and she requested a referral to [facility]. SW updated her about [facility]'s decline. SW faxed a referral to [facility]. Awaiting screen.
[2022-05-03 13:51] VITALS: BP 144/75; PULSE 68; TEMP 97.6
[2022-05-03] MEDS ORDERED: COREG 3.123.125 MG/T PO (14:04)
[2022-05-03] MEDS ORDERED: MELATONIN5 M1 SL (14:06)
[2022-05-03] MEDS ORDERED: ENVARSUS XR1 MG PO (14:06)
[2022-05-03] MEDS ORDERED: DIPHENHYDRAMINE TP (14:07)
[2022-05-03] MEDS ORDERED: B-121000 MCG PO (14:07)
[2022-05-03] MEDS ORDERED: ANECREAM TP (14:07)
[2022-05-03] MEDS ORDERED: VITAMIND3 5000 PO (14:07)
[2022-05-03] MEDS ORDERED: SYNTHROID0.1 MG/TAB PO (14:07)
[2022-05-03] MEDS ORDERED: HUMULIN N PE100 U/ML SQ (14:08)
[2022-05-03] MEDS ORDERED: PROTONIX 40MG T40 MG PO (14:08)
[2022-05-03] MEDS ORDERED: PREDNISONE10 MG PO (14:08)
[2022-05-03] MEDS ORDERED: REGLAN 5MG T5 MG/TAB PO (14:08)
--- NOTE | 2022-05-03 14:08 | NUR ---
Dr Johnson was in to see patient, will plan discharge
[2022-05-03] MEDS ORDERED: EFFEXOR 3737.5 MG/TA PO (14:09)
[2022-05-03] MEDS ORDERED: IMODIUM 2MG CAPS2 MG PO (14:09)
[2022-05-03] MEDS ORDERED: MIRALAX PA17 GM/Dose PO (14:09)
[2022-05-03] MEDS ORDERED: SODIUM BICARBO650 MG PO (14:09)
[2022-05-03] MEDS ORDERED: LASIX 40MG TABL40 MG PO (14:09)
[2022-05-03] MEDS ORDERED: CORDARONE200 MG/TAB PO (14:10)
[2022-05-03] MEDS ORDERED: TYLENOL 325MG325 MG PO (14:10)
[2022-05-03] MEDS ORDERED: ELIQUIS 5MG PO (14:10)
[2022-05-03] MEDS ORDERED: CRESTOR 10MG10 MG PO (14:10)
[2022-05-03] MEDS ORDERED: CIPRO 500MG TA500 MG PO (14:12)
--- NOTE | 2022-05-03 14:34 | NUR ---
Emilee, at [facility], reports that they are able to accept the patient today. SW notified the patient's RN and Dr. Johnson. The patient is to discharge today, 05/03, to [facility] for a skilled stay. Transportation was scheduled at 1500, via [facility]. JAMIN informed the patient and her RN of the time. JAMIN attempted to contact and update the patient's daughter, Nafisa. Nafisa's mailbox was full, so JAMIN was unable to leave a message. No additional needs at this time.
--- NOTE | 2022-05-03 15:30 | NUR ---
discharged per with to [facility]
--- NOTE | 2022-05-03 15:43 | NUR ---
report given to Kristal georges [facility]
== END 2022-05-03 15:30 | DRG 640 ==
LOC: COL.ER 11:08 → MEDICAL 13:06
PROVIDERS: Emergency Medicine; Nurse Practitioner; ADMIT Internal Medicine Nephrology
PROC: 5A1D70Z Performance of Urinary Filtration, Intermittent, Less than 6 Hours Per Day (ICD-10-PCS; principal; 2022-04-29)
DX: E87.70 Fluid overload, unspecified (principal); N18.6 End stage renal disease; I12.0 Hypertensive chronic kidney disease with stage 5 chronic kidney disease or end stage renal disease; I42.9 Cardiomyopathy, unspecified; T86.12 Kidney transplant failure; J98.11 Atelectasis; N39.0 Urinary tract infection, site not specified; Z20.822 Contact with and (suspected) exposure to COVID-19; E11.22 Type 2 diabetes mellitus with diabetic chronic kidney disease; F32.9 Major depressive disorder, single episode, unspecified; D63.1 Anemia in chronic kidney disease; E78.5 Hyperlipidemia, unspecified; I95.9 Hypotension, unspecified; E03.9 Hypothyroidism, unspecified; G47.33 Obstructive sleep apnea (adult) (pediatric); I48.91 Unspecified atrial fibrillation; E83.39 Other disorders of phosphorus metabolism; I44.0 Atrioventricular block, first degree; I45.10 Unspecified right bundle-branch block; Z79.4 Long term (current) use of insulin; Z79.890 Hormone replacement therapy; Z99.2 Dependence on renal dialysis; Z98.51 Tubal ligation status; Z79.01 Long term (current) use of anticoagulants; Z91.15 Patient's noncompliance with renal dialysis; Z23 Encounter for immunization
CPT/HCPCS: A9284; J0696; J1815; J7507; J7512

== ENCOUNTER 2023-12-17 14:37 | Emergency (ER) | payer MEDICARE ==
[~2023-12-17] VITALS: Ht 165.1 cm; Wt 60.0 kg
[~2023-12-17 14:37] MED LIST changes: +CIPRO 500MG TA500 MG PO; +SODIUM BICARBO650 MG PO
[2023-12-17 14:41] VITALS: TEMP 97.3
[2023-12-17] MEDS ORDERED: Tdap Vaccine 0.5 ML SYRINGE IM ONE (15:00)
[2023-12-17 15:16] LABS: BASO % 0.4 % (0.0-2.0); EOS # 0.1 K/mm3 (0.0-0.7); EOS % 1.5 % (0.0-4.0); GRAN % 82.5 % (42.2-75.2); HEMOGLOBIN 11.8 g/dl (12.5-16.0); LYMPH # 0.7 K/mm3 (1.2-3.4); MEAN CELL VOLUME 97 fl (80.0-100.0); MEAN CORPUSCULAR HEMOGLOBIN 31 pg (27-31); MEAN CORPUSCULAR HGB CONC 32 g/dl (33.0-37.0); MEAN PLATELET VOLUME 10.8 fl (7.4-10.4); MONO # 0.4 K/mm3 (0.1-0.6); MONO % 5.3 % (1.7-9.3); PLATELET COUNT 149 K/mm3 (130-400); REDCELL DISTRIBUTION WIDTH-CV 13.4 % (11.5-14.5)
[2023-12-17 15:18] LABS: HEMATOCRIT 36.7 % (37.0-47.0)
[2023-12-17 15:20] LABS: INR 1.6 (0.8-3.0)
[2023-12-17 15:36] LABS: BILIRUBIN,TOTAL 0.7 mg/dL (0.2-1.2); CALCIUM 9.5 mg/dL (8.4-10.2); CREATININE, serum 2.47 mg/dL (0.57-1.11); POTASSIUM 4.3 mEq/L (3.5-4.5); TOTAL PROTEIN 6.5 g/dl (6.2-8.1)
[2023-12-17] MEDS ORDERED: levETIRAcetam 1,000 MG in Syringe 1 EACH IV ONE (16:30)
[2023-12-17] MEDS ORDERED: Prothrombin Complex Human 2,000 UNITS in Water For Injection,Sterile 80 ML IV ONE (16:45)
[2023-12-17 18:10] VITALS: BP 175/94; PULSE 85
== END 2023-12-17 18:10 | disposition short-term general hospital (02) ==
LOC: COL.ER 14:37
PROVIDERS: Emergency Medicine
DX: S82.001A Unspecified fracture of right patella, initial encounter for closed fracture (principal); S06.330A Contusion and laceration of cerebrum, unspecified, without loss of consciousness, initial encounter; S80.212A Abrasion, left knee, initial encounter; E11.22 Type 2 diabetes mellitus with diabetic chronic kidney disease; N18.6 End stage renal disease; I48.91 Unspecified atrial fibrillation; Z79.01 Long term (current) use of anticoagulants; Z99.2 Dependence on renal dialysis; W01.0XXA Fall on same level from slipping, tripping and stumbling without subsequent striking against object, initial encounter
CPT/HCPCS: J1953; J7168; L1846